=== PATIENT | male | born 1960 | race Two or more races ===

== ENCOUNTER 2017-04-03 21:55 | Emergency (ER) | payer OTHER ==
[~2017-04-03] VITALS: Ht 165.1 cm; Wt 89.4 kg
[2017-04-03] MEDS ORDERED: ONDANSETRON HCL/PF 4 MG/2 ML VIAL ONE (21:59)
[2017-04-03] MEDS ORDERED: IV NS 0.9% 1,000 ML BAG IV ONE (22:00)
[2017-04-03] MEDS ORDERED: ASPIRIN 325 MG TABLET PO ONE (22:00)
[2017-04-03] MEDS ORDERED: ONDANSETRON HCL/PF 4 MG/2 ML VIAL IVP ONE (22:00)
[2017-04-03] MEDS ORDERED: LORAZEPAM INJ 2 MG/ML VIAL IV ONE (22:00)
[2017-04-03] MEDS ORDERED: ASPIRIN 81 MG TAB.CHEW ONE (22:08)
[2017-04-03] MEDS ORDERED: LORAZEPAM INJ 2 MG/ML VIAL ONE (22:08)
--- NOTE | 2017-04-03 22:08 | NUR ---
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 PT STATES HE WAS COUGHING AFTER EATING AND BEGAN TO VOMIT. PT AOX3 RR EVEN AND UNLABORED. NO SOB NOTED.. PT NOTED WITH EPISODE OF VOMITTING. PT NOTED DIAPHORETIC. PT GOWNED AND PLACED ON MONTIOR WAITING FOR MD MILLAN.
--- NOTE | 2017-04-03 22:10 | NUR ---
DR. PAULSON AT BEDSIDE FOR EVAL.
--- NOTE | 2017-04-03 22:18 | NUR ---
PT TO CT.
[2017-04-03 22:22] LABS: BASOPHILS % (AUTO) 0.5 % (0.0-2.0); HEMATOCRIT 49 % (39-51); HEMOGLOBIN 16.3 g/dL (13.5-17.5); LYMPHOCYTES # (AUTO) 4.5 /CMM (0.8-4.8); LYMPHOCYTES % (AUTO) 44.6 % (20.0-44.0); MEAN CORPUSCULAR HEMOGLOBIN 29 PG (26.0-33.0); MEAN CORPUSCULAR HGB CONC 34 g/dl (31.0-36.0); MEAN CORPUSCULAR VOLUME 87 fL (80-96); MONOCYTES # (AUTO) 0.7 /CMM (0.1-1.30); MONOCYTES % (AUTO) 7.2 % (2.0-12.0); NEUTROPHILS # (AUTO) 4.8 /CMM (1.8-8.9); NEUTROPHILS % (AUTO) 47.7 % (43.0-81.0); PLATELET COUNT (AUTO) 198 /CMM (150-450); RDW COEFFICIENT OF VARIATION 13.5 (11.5-15.0); RED BLOOD CELL COUNT(AUTO) 5.59 MIL/uL (4.5-6.0)
[2017-04-03] MEDS ORDERED: ONDANSETRON HCL/PF 4 MG/2 ML VIAL IV ONE (22:30)
--- NOTE | 2017-04-03 22:35 | NUR ---
PT RETURNED FROM CT.
[2017-04-03 22:36] LABS: CALCIUM, SERUM 9.5 mg/dL (8.5-10.1); CARBON DIOXIDE 24 mmol/L (21-32); CHLORIDE 99 mmol/L (98-107); CREATININE 1.1 mg/dL (0.6-1.3); GLUCOSE 296 mg/dL (74-106); POTASSIUM 3.8 mmol/L (3.5-5.1); SODIUM SERUM 134 mmol/L (136-145); UREA NITROGEN, BLOOD 17 mg/dL (7-18)
[2017-04-03 22:42] LABS: ALBUMIN 4.1 g/dL (3.4-5.0); ALCOHOL, BLOOD < 3 mg/dL (0-0); ALKALINE PHOSPHATASE 90 U/L (46-116); BILIRUBIN,DIRECT 0.1 mg/dL (0.0-0.2); BILIRUBIN,TOTAL 0.5 mg/dL (0.2-1.0); D-DIMER 0.27 mg/L(FEU (0.17-0.50); INR 1.02 (0.87-1.13); PROTHROMBIN TIME 10.6 SECS (9.5-12.7); TOTAL PROTEIN, SERUM 8.3 g/dL (6.4-8.2)
[2017-04-03 22:44] LABS: ACETAMINOPHEN 0 ug/ml (10-30); SALICYLATE 0.2 mg/dL (2.8-20.0); TROPONIN I < 0.017 ng/mL (0.00-0.056)
[2017-04-03 22:50] LABS: THYROID STIMULATING HORMONE 6.722 uIU/mL (0.358-3.74)
[2017-04-03 22:58] LABS: ALANINE AMINOTRANSFERASE 147 U/L (12-78); ASPARTATE AMINOTRANSFERASE 72 U/L (15-37)
--- NOTE | 2017-04-03 23:29 | NUR ---
DR. PAULSON AT BEDSIDE SPEAKING TO PT AND
--- NOTE | 2017-04-04 01:00 | NUR ---
DR. PAULSON SPEAKING TO PT AND REGARDING POC
--- NOTE | 2017-04-04 01:09 | NUR ---
UNABLE TO COLLECT URINE AT THIS TIME. DR. PAULSON AWARE
--- NOTE | 2017-04-04 01:39 | NUR ---
[facility] [phone]
--- NOTE | 2017-04-04 01:55 | NUR ---
LAB AT BEDSIDE FOR 2ND TROP DRAW
[2017-04-04] MEDS ORDERED: METOCLOPRAMIDE HCL 10 MG/2 ML VIAL ONE (02:53)
[2017-04-04] MEDS ORDERED: METOCLOPRAMIDE HCL 10 MG/2 ML VIAL IV ONE (03:00)
--- NOTE | 2017-04-04 03:10 | NUR ---
URINE COLLECTED. CALLED LAB FOR COMPUTER SYSTEMS AUDITOR.
[2017-04-04] MEDS ORDERED: MECLIZINE HCL 25 MG TABLET ONE (03:12)
--- NOTE | 2017-04-04 03:12 | NUR ---
CALLED [facility] ([phone]). CASE WILL BE PRESENTED TO [facility]
[2017-04-04 03:24] LABS: APPEARANCE,URINE SL CLOUDY (CLEAR); BILIRUBIN,URINE NEGATIVE (NEGATIVE); BLOOD, URINE NEGATIVE Ery/uL (NEGATIVE); COLOR,URINE YELLOW (YELLOW); KETONES,URINE NEGATIVE (NEGATIVE); LEUKOCYTE ESTERASE ,URINE NEGATIVE (NEGATIVE); NITRITE, URINE NEGATIVE (NEGATIVE); PH,URINE 6.5 (5.0-8.0); PROTEIN,URINE TRACE mg/dl (NEGATIVE); UGLUCOSE 3+ mg/dL (NEGATIVE); UROBILINOGEN,URINE 0.2 EU/dL (0.2)
[2017-04-04 03:30] LABS: BACTERIA,URINE None seen /HPF (None Seen); RBC,URINE NONE SEEN /HPF (0-2); SQUAMOUS EPITHELIAL CELL,UR Few /HPF (None Seen); WBC,URINE 0-2 /HPF (0-3)
[2017-04-04] MEDS ORDERED: MECLIZINE HCL 12.5 MG TABLET PO ONE (03:30)
--- NOTE | 2017-04-04 03:31 | NUR ---
DR. PAULSON SPEAKING TO EPRP MD DR. KNAPP REGARDING POC.
--- NOTE | 2017-04-04 04:17 | NUR ---
[place] TRANSFER INFO: [facility] ACCEPTED BY DR. MOSELEY NUMBER FOR REPORT: AMBULANCE ETA: 05:00
--- NOTE | 2017-04-04 04:26 | NUR ---
REPORT GIVEN TO JAIMEE SEGOVIA FROM [facility].
[2017-04-04 05:47] VITALS: BP 150/82
--- NOTE | 2017-04-04 05:48 | NUR ---
REPORT GIVEN TO EMT FROM [facility]. PT AWARE OF TRANSFER. PT WITH ALL PERSONAL BELONGINGS. IV INTACT AND PATENT. NO S/S INFECTION. PT TO BE TRANSFERRED TO [facility]. ALL TRANSFER PAPERS WITH EMT. PER [facility] TOOK OVER CARE
== END 2017-04-04 05:53 ==
LOC: ER 21:56
DX: E11.65 Type 2 diabetes mellitus with hyperglycemia (principal); R11.2 Nausea with vomiting, unspecified; H81.399 Other peripheral vertigo, unspecified ear; R56.9 Unspecified convulsions; Z79.82 Long term (current) use of aspirin
CPT/HCPCS: 36415 ×2; 70450; 71010; 80048; 80076; 80305; 80329; 81001; 82962; 84439; 84443; 84484 ×2; 85025; 85378; 85730; 93005 ×3; 96361; 96374; 96375; 99285; A4606; G0480 ×2; J2060; J2405; J2765; J7030; J8597; Z7610; 81000-TC